=== PATIENT | male | born 1960 | race Caucasian/White ===

== ENCOUNTER → 2017-06-01 | Outpatient (CLI) | payer BC ==
--- NOTE | ~2017-06-01 | CR63 ---
[facility] A Service of [facility] RADIOLOGY TEXT RESULTS PATIENT: RICCARDO COLÓN LOCATION: [facility] : 62 UNIT #: [id number] AGE: [address]: MILANA KAPLAN SEX: M ORDER DR: [id number] [facility] [address] [place], [place] [address] [id number] O MR#: [id number] Acc #: [id number] NAME: RICCARDO COLÓN : 1960 SEX: M STUDY DATE/TIME: 06/01/2017 11:04 UNIT: [facility] ROOM: STUDY DESCRIPTION: CR Chest 2 View Attending Physician: Mialna Kaplan Aprn Referring Physician: Milana Kaplan Aprn Ordering Physician: Milana Kaplan Aprn Primary Care Physician: Milana Kaplan Aprn MEDICAL IMAGING REPORT This report is preliminary unless electronic signature is present EXAM PA lateral chest date: 06/01/2017. HISTORY 56-year-old male with complaints of mid spine pain and shortness breath since yesterday. No documented injury. COMPARISON None. FINDINGS PA and lateral examination of the chest upright shows a good expansion of the parenchyma with a normal distribution of the pulmonary vascularity. There is no indication of congestion, effusion, infiltrate, tumor, or nodular density. The pleural reflections and diaphragmatic contours are normal. The cardiac silhouette and mediastinal anatomy is within normal limits. IMPRESSION Normal chest. Dictated by... Julienne Rodas M.D. THIS IS AN ELECTRONICALLY VERIFIED REPORT Julienne Rodas M.D. at 06/02/2017 7:08 AM AMINATA/chris TD: 06/01/2017 15:36 JOB #: [id number] MEDICAL IMAGING REPORT Page 1 of 1 COPY
--- NOTE | ~2017-06-01 | CR242 ---
[facility] A Service of [facility] RADIOLOGY TEXT RESULTS PATIENT: RICCARDO COLÓN LOCATION: [facility] : 62 UNIT #: [id number] AGE: [address]: MILANA KAPLAN SEX: M ORDER DR: [id number] [facility] [address] [place], [place] [address] [id number] O MR#: [id number] Acc #: [id number] NAME: RICCARDO COLÓN : 1960 SEX: M STUDY DATE/TIME: 06/01/2017 11:10 UNIT: [facility] ROOM: STUDY DESCRIPTION: CR Thoracic Spine 2 Views Attending Physician: Milana Kaplan Aprn Referring Physician: Milana Kaplan Aprn Ordering Physician: Milana Kaplan Aprn Primary Care Physician: Milana Kaplan Aprn MEDICAL IMAGING REPORT This report is preliminary unless electronic signature is present EXAM Three views of the thoracic spine. 06/01/2017 HISTORY Mid spine pain and shortness of breath since yesterday. No documented injury. COMPARISON None. FINDINGS AP, lateral, and swimmers views were obtained. No thoracic vertebral body fracture or subluxation is identified. Disc space height appears preserved. Anterior osteophyte formation is noted incidentally within the imaged lower cervical spine. No osteolytic or osteoblastic abnormalities are evident. Small right lateral marginal osteophyte formation is present at T8-9 on the right. IMPRESSION Mild right lateral marginal osteophyte formation at T8-9. Otherwise, normal thoracic spine series. Dictated by... Julienne Rodas M.D. THIS IS AN ELECTRONICALLY VERIFIED REPORT Julienne Rodas M.D. at 06/02/2017 7:08 AM AMINATA/kendall TD: 06/01/2017 17:58 JOB #: [id number] [facility] A Service of [facility] RADIOLOGY TEXT RESULTS PATIENT: RICCARDO COLÓN LOCATION: [facility] : 62 UNIT #: [id number] AGE: [address]: MILANA KAPLAN SEX: M ORDER DR: MEDICAL IMAGING REPORT Page 1 of 1 COPY
--- NOTE | ~2017-06-01 | CR181 ---
[facility] A Service of [facility] RADIOLOGY TEXT RESULTS PATIENT: RICCARDO COLÓN LOCATION: [facility] : 62 UNIT #: [id number] AGE: [address]: MILANA KAPLAN SEX: M ORDER DR: [id number] [facility] [address]. [place], [place] [address] [id number] O MR#: [id number] Acc #: [id number] NAME: RICCARDO COLÓN : 1960 SEX: M STUDY DATE/TIME: 06/01/2017 11:11 UNIT: [facility] ROOM: STUDY DESCRIPTION: CR Lumbar Spine 2 or 3 Views Attending Physician: Milana Kaplan Aprn Referring Physician: Milana Kaplan Aprn Ordering Physician: Milana Kaplan Aprn Primary Care Physician: Milana Kaplan Aprn MEDICAL IMAGING REPORT This report is preliminary unless electronic signature is present EXAM 3 views of the lumbar spine 06/01/2017 HISTORY 56-year-old male with mid-spine pain and shortness breath since yesterday. Back pain. No documented injury. COMPARISON None. FINDINGS No lumbar spine fracture or subluxation is seen. There is mild diminished disc height at L5-S1. Anterior osteophyte formation is present at each lumbar level. New no fracture. No subluxation. Suspected mild facet arthropathy bilaterally at L5-S1. No sacroiliac joint diastasis. IMPRESSION 1. Mild bilateral L5-S1 facet arthropathy. Marginal osteophyte formation at each lumbar level. Mild diminished disc height at L5-S1. 2. No acute lumbar spine findings. Dictated by... Julienne Rodas M.D. THIS IS AN ELECTRONICALLY VERIFIED REPORT Julienne Rodas M.D. at 06/02/2017 7:08 AM LLJavon/harrison TD: 06/01/2017 18:08 JOB #: [id number] [facility] A Service of [facility] RADIOLOGY TEXT RESULTS PATIENT: RICCARDO COLÓN LOCATION: [facility] : 62 UNIT #: [id number] AGE: [address]: MILANA KAPLAN SEX: M ORDER DR: MEDICAL IMAGING REPORT Page 1 of 1 COPY
== END | disposition home or self-care (01) ==
LOC: CRAD 10:39
DX: M54.6 Pain in thoracic spine (principal); R07.82 Intercostal pain; M25.78 Osteophyte, vertebrae; M46.97 Unspecified inflammatory spondylopathy, lumbosacral region
CPT/HCPCS: 71020; 72070; 72100